=== PATIENT | female | born 1935 | race Caucasian/White ===

== ENCOUNTER → 2017-01-14 | Outpatient (CLI) | payer MEDICARE, BC ==
[~2017-01-14] MED LIST: AMOXICILLIN500 MG PO; ASPIRIN325 MG PO; ATIVAN 0.5MG0.5 MG PO; FEOSOL325 MG PO; FLONASE 50 MCG/16 GM NOSE; LEVOTHROID (S100 MCG PO; LINZESS145 MCG PO; MIRALAX17 GM PO; NATURAL BALANCE15 ML OPHTH; NEURONTIN300 MG PO; NORCO 5-325 TA1 EACH PO; NYSTOP60 GM TOP; PAMELOR25 MG PO; PRESERVISION A1 EAC2 PO; PRILOSEC20 MG PO; PROAIR HFA8.5 GM INH; PROTONIX40 MG PO; PROVENTIL OR V6.7 GM INH; TOPROL XL25 MG PO; TRICOR145 MG PO; TYLENOL ARTHRI650 MG PO; TYLENOL EXTRA500 MG PO; TYLENOL WITH C1 EACH PO; TYLENOL325 MG PO; ULTRAM50 MG PO; VOLTAREN 1% GE100 GM TOP; XARELTO10 MG PO; ZETIA10 MG PO; ZYRTEC10 MG PO; [UNRECOGNIZED DRUG - CODE] TOP
--- NOTE | ~2017-01-14 | PUL ---
PATIENT'S NAME: SELENA GAMEZ [facility] AGE: 81 Y [address] ROOM: [place] [address] [place] [facility] [place]: 01/14/2017 Pulmonary DISCHARGE DATE: FAMILY PHYSICIAN: Alicia Shepherd MD ATTENDING PHYSICIAN: Alicia Shepherd NAME OF PROCEDURE: Six Minute Walk Test DATE OF PROCEDURE: January 14, 2017 TECH: ATripe, TRANSPLANT CASE MANAGER REASON FOR EXAM: Dyspnea on exertion RESULTS: The test was performed on room air. She walked for 850 feet at a pace of 1.6 mile/hour. He had one period of rest. Her oxygen saturation was 95% at the beginning of the test, then remained above 95% during and after the test. The perceived dyspnea was 2/10 on the Ashwini scale. She had appropriate increases in her heart rate and blood pressure. Please note that she complained of joint pain during the test. PHYSICIAN INTERPRETATION: The patient has mild limitation in her exercise capacity without significant desaturations or hypoxia during exercise while on room air. MD MIGDALIA CONTI/avel /[id number] dtt: 01/16/17 1056 , ANGELINE BRYSON dtd: 01/15/17 1534
== END | disposition disaster alternative care site (69) ==
LOC: GBCOE 01-12 12:30
DX: Z12.31 Encounter for screening mammogram for malignant neoplasm of breast (principal); R42 Dizziness and giddiness
CPT/HCPCS: G0202

== ENCOUNTER 2017-04-21 09:00 | Inpatient (IN) | payer MEDICARE, BC ==
[~2017-04-21] VITALS: Ht 157.5 cm; Wt 69.1 kg
--- NOTE | ~2017-04-21 | OR ---
PATIENT'S NAME: SELENA GONZALEZ [facility] AGE: 81 Y [address] ROOM: [place] [address] LOCATION: [facility] ADMIT DATE: 05/05/2017 OR/Procedure Report DISCHARGE DATE: FAMILY PHYSICIAN: Alicia Shepherd MD ATTENDING PHYSICIAN: SINAI WINN SURGEON: Sinai Winn MD CHAIN MAKER LOOM CONTROL: Shubham Shepard PA-C and Og Pierce CST/DOOR TO DOOR FUNDRAISING COLLECTOR. DATE OF PROCEDURE: 05/05/2017 PRE-OP DIAGNOSIS: Degenerative joint disease, right knee. POST-OP DIAGNOSIS: Degenerative joint disease, right knee. OPERATION: Right total knee arthroplasty with computer navigation. ANESTHESIA: Spinal anesthesia plus adductor canal block plus periarticular local anesthesia (ropivacaine with epinephrine and Toradol). ESTIMATED BLOOD LOSS: Less than 10 mL. DRAIN: None. SPECIMEN: None. COMPLICATIONS: None. IMPLANT SYSTEM: Mertens Triathlon: Size 4 right posterior stabilized femoral component. Size 3 Greenview modular tibial base plate. A 9 mm posterior-stabilized size 3 X3 tibial polyethylene insert. A 32-mm oval X3 patellar component (triple pegged). INDICATIONS FOR SURGERY: Selena Gonzalez is an 81-year-old female who presents with advanced right knee degenerative joint disease and associated severely compromised activities of daily living. The patient has decided to proceed with knee replacement after having been thoroughly counseled regarding the associated risks, benefits, and limitations. We have specifically reviewed the risks and implications of infection, deep venous thrombosis, pulmonary embolism, mortality, neurovascular complications, blood transfusion (and associated potential for disease transmission or transfusion reaction), stiffness, instability, mechanical deterioration of the components (due to wear and or loosening), and the potential need for revision. We have also emphasized the importance of active involvement and compliance with post- operative physical therapy as a means of optimizing range of motion and PATIENT'S NAME: SELENA GONZALEZ [facility] AGE: 81 Y [address] ROOM: [place] [address] LOCATION: [facility] ADMIT DATE: 05/05/2017 OR/Procedure Report DISCHARGE DATE: FAMILY PHYSICIAN: Alicia Shepherd MD ATTENDING PHYSICIAN: SINAI WINN functional recovery. Informed consent has been granted. DESCRIPTION OF PROCEDURE: The patient was positioned supine after administration of anesthesia and prophylactic antibiotics. A well-padded pneumatic tourniquet was placed around the right proximal thigh, and the right lower extremity was prepped and draped with vigilant sterile technique. The patient's name as well as the intended operative side and procedure were confirmed with a verbal time-out involving myself, the circulating nurse, the scrub nurse, and the anesthesiologist. Examination under anesthesia demonstrated a large effusion. There was no erythema. There was no abnormal warmth. There were no active skin lesions or masses. Range of motion under anesthesia was from a 5-degree flexion contracture to 130 degrees of flexion. There was no ligamentous insufficiency. The right lower extremity was elevated and exsanguinated with an Esmarch wrap, and the pneumatic tourniquet was inflated to 300mmHg. The knee was approached through a longitudinal midline incision. A medial parapatellar arthrotomy was performed and the patella was everted. Examination of the joint space demonstrated a large amount of benign-appearing translucent synovial fluid. There was a large osteophyte at the lateral aspect of the intercondylar notch. There was a large osteophyte and a 5 mm diameter mobile ossicle at the medial margin of the medial tibial plateau. There was a large osteophyte at the medial femoral condyle. There was full-thickness loss of articular cartilage involving 80% of the medial femoral condyle, 80% of the medial tibial plateau, and a 1.5 cm diameter region at the medial facet of the patella. There was also a 5 mm region of full-thickness articular cartilage loss at the medial aspect of the lateral tibial plateau. There were small osteophytes at the medial and lateral margins of the femoral trochlea as well as the lateral femoral condyle and lateral tibial plateau. There were mild grade 3 degenerative changes at the medial 2/3rd of the lateral tibial plateau. There was partial-thickness fissuring of the articular cartilage at the medial aspect of the lateral tibial plateau. There was moderate inner perimeter tearing of the lateral meniscus. There was degenerative tearing of the truncated peripheral remnant of the medial meniscus. Remnants of the menisci and cruciate ligaments were excised. The [employer] navigation femoral tracker was pinned in place at the distal aspect of the femoral trochlea. Absence of motion between the femur and the tracking device was confirmed manually and visually. Femoral osseous landmarks were obtained in order to calibrate the computer navigation system. Landmarks included the center of rotation of the ipsilateral hip, the center-point of the distal femur, the femoral AP axis, 57 points on the medial femoral condyle PATIENT'S NAME: SELENA GONZALEZ [facility] AGE: 81 Y [address] ROOM: [address] [address] LOCATION: [facility] ADMIT DATE: 05/05/2017 OR/Procedure Report DISCHARGE DATE: FAMILY PHYSICIAN: Alicia Shepherd MD ATTENDING PHYSICIAN: SINAI WINN articular surface, and 57 points on the lateral femoral condyle articular surface. The [employer] Youth computer navigation system was subsequently utilized to position the distal femoral resection block such that the distal femoral resection was performed perfectly perpendicular to the femoral mechanical axis. The distal femoral resection was performed with a Stremor oscillating saw. The [employer] Youth computer navigation tibial tracker was pinned in place at the anterior aspect of the tibial plateau. Absence of motion between the tibia and the tracking device was confirmed manually and visually. Tibial osseous landmarks were obtained in order to calibrate the computer navigation system. Landmarks included the center-point of the tibial plateau, the AP tibial axis, 57 points on the medial tibial plateau articular surface, 57 points on the lateral tibial plateau articular surface, the medial malleolus, and the lateral malleolus. The [employer] Youth computer navigation system was subsequently utilized to position the proximal tibial resection block such that the proximal tibial resection was performed perfectly perpendicular to the tibial mechanical axis. The proximal tibial resection was performed with a [employer] Precision oscillating saw. Perpendicularity of the tibial resection with respect to the tibial shaft axis was reconfirmed by inserting a spacer- block attached to an extramedullary guide elvia. External rotation of the anterior and posterior femoral resections was set parallel to the epicondylar axis and carefully adjusted in order to create a rectangular flexion gap. The box resection was performed with a reciprocating saw. Anterior and posterior chamfer resections were performed with the oscillating saw. Posterior condyle osteophytes were excised with an osteotome. All other osteophytes were excised with a rongeur. Resection of all remnants of the menisci was reconfirmed. Flexion and extension gaps were confirmed to be symmetric and well balanced with a spacer-block technique. The patella resection was performed with an oscillating saw such that the composite thickness of the reconstructed patella was equivalent to the thickness of the omaha patella. Patella tracking was optimal, and there was no need for a lateral retinacular release. All trial components were removed and all prepared osseous surfaces were thoroughly irrigated with pulsatile saline lavage and dried prior to cementing all three components in a single stage using Feng Simplex cement containing pre-mixed tobramycin. All extruded excess cement was removed. The entire joint space was thoroughly inspected and thoroughly irrigated with bacteriostatic pulsatile saline lavage to assure that there was no residual debris of any sort. Final range of motion was full extension (with no passive hyperextension) to PATIENT'S NAME: SELENA GONZALEZ [facility] AGE: 81 Y [address] ROOM: [address] [address] LOCATION: [facility] ADMIT DATE: 05/05/2017 OR/Procedure Report DISCHARGE DATE: FAMILY PHYSICIAN: Alicia Shepherd MD ATTENDING PHYSICIAN: SINAI WINN 130 degrees of flexion. Patella tracking was reconfirmed to be optimal. There was very good anteroposterior stability at 90 degrees of flexion. There was less than 1 mm of medial lift-off to valgus stress in full extension. There was 1 mm of lateral lift-off to varus stress in full extension. The arthrotomy was closed with multiple simple and ldtoyt-xg-xncac interrupted #1 Vicryl. Subcutaneous tissues were thoroughly re-irrigated with bacteriostatic pulsatile saline lavage. Subcutaneous tissues were re- approximated with simple buried interrupted #0 Vicryl sutures. The skin was closed with simple buried interrupted 2-0 Vicryl sutures followed by surgical yvonne. The dressing consisted of Xeroform gauze, 4x4 gauze, ABD pads and two 6-inch Luther Wraps. There were no intra-operative complications. It should be noted that the physician's floral assistant played an active, integral role throughout this entire operation. By providing expert retraction, they greatly facilitated and expedited safe and effective exposure of the distal femur, proximal tibia and patella for preparation and implantation of the components. They were also actively involved in the patient's positioning, prepping and draping, as well as wound closure. MD JOSEPH DILLON/harleenl /[id number] d: 05/05/17 1326 t: 05/15/17 0751, OPERATIVE SUMMARY
--- NOTE | ~2017-04-21 | DS ---
PATIENT'S NAME: SELENA GAMEZ [facility] AGE: 81 Y [address] ROOM: [place] [address] LOCATION: [facility] ADMIT DATE: 05/05/2017 Discharge Summary DISCHARGE DATE: 05/08/2017 FAMILY PHYSICIAN: Alicia Shepherd MD ATTENDING PHYSICIAN: Sinai Winn PRIMARY DIAGNOSIS: Degenerative joint disease of the right knee. SECONDARY DIAGNOSES: 1. Hypertension. 2. Chronic anxiety. 3. Depression. 4. Anemia. 5. History of gastric erosions. 6. Renal insufficiency. PROCEDURE PERFORMED: Right total knee arthroplasty. HISTORY: The patient is an 81-year-old female, who presents with advanced right knee degenerative joint disease and associated severely compromised activities of daily living. The patient has decided to proceed with total knee arthroplasty after having been thoroughly counseled regarding the risks, benefits, limitations and alternatives. Please refer to the outpatient clinic notes and admission history and physical for this patient. HOSPITAL COURSE: The patient underwent a right total knee arthroplasty on 05/05/2017 without complications. Spinal anesthesia plus adductor canal block plus periarticular local anesthesia was utilized. The patient received 24 hours of perioperative prophylactic antibiotics and remained hemodynamically stable, neurovascularly intact throughout the entire hospital course. The postoperative prophylactic deep venous thrombosis prophylaxis consisted of Xarelto, early mobilization and pneumatic compression devices. Daily physical therapy for gait training, transfer training range of motion and quadriceps isometric exercises were received. The patient progressed well in physical therapy. On the date of discharge, 05/08/2017, the incision at the knee was healing well and showed no signs of infection. DISPOSITION: Home. DISCHARGE ACTIVITY: The patient is to bear weight as tolerated with range of motion and quadriceps isometric exercises as instructed. The operative extremity is to be elevated at least 90% of the day. There is to be sterile 4x4 gauze dressings to the incision daily. Dr. Winn is to be notified immediately if there is any increased pain, fevers, chills erythema or drainage. PATIENT'S NAME: SELENA GAMEZ [facility] AGE: 81 Y [address] ROOM: [place] [address] LOCATION: [facility] ADMIT DATE: 05/05/2017 Discharge Summary DISCHARGE DATE: 05/08/2017 FAMILY PHYSICIAN: Alicia Shepherd MD ATTENDING PHYSICIAN: Sinai Winn DISCHARGE MEDICATIONS: 1. Xarelto 10 mg 1 tab p.o. daily for 12 days for postoperative DVT prophylaxis. 2. [place] 5/325 mg 1 to 2 tabs p.o. every 4 hours p.r.n. for pain. 3. The patient is then instructed to continue all her other pre-admission medications as instructed by her internal medicine doctor. FOLLOWUP: Followup appointment is with Dr. Winn's office on 05/12/2017 for her initial postoperative evaluation with x-rays and staple removal at that time. JOSÉ CURRAN PA-C FOR SINAI WINN MD SMW/modl /[id number] d: 05/14/172320 t: 05/15/172057, DISCHARGE SUMMARY
[~2017-04-21 09:00] MED LIST changes: -AMOXICILLIN500 MG PO; -FEOSOL325 MG PO; -MIRALAX17 GM PO; -NORCO 5-325 TA1 EACH PO; -NYSTOP60 GM TOP; -PROTONIX40 MG PO; -TYLENOL325 MG PO; -XARELTO10 MG PO
[2017-04-22] MEDS ORDERED: PROTONIX40 MG PO (10:24)
[2017-04-22] MEDS ORDERED: ZETIA10 MG PO (10:25)
[2017-04-22] MEDS ORDERED: ATIVAN 0.5MG0.5 MG PO (10:25)
[2017-04-22] MEDS ORDERED: FEOSOL325 MG PO (10:30)
[2017-04-22] MEDS ORDERED: LINZESS145 MCG PO (10:35)
[2017-04-22] MEDS ORDERED: AMOXICILLIN500 MG PO (10:36)
[2017-05-05] MEDS ORDERED: ATIVAN 0.5MG0.5 MG PO (14:34)
--- NOTE | 2017-05-05 19:30 | NUR ---
Significant Event:VSS, O2 at 4L/NC, rates pain 0-2/10. [place] at 1730. Dsg to R knee CDI, CSM adequate. Tx with SBA 1, GB/Walker. Up in chair x 2. Voids per BSC. Follow up:Monitor
--- NOTE | 2017-05-06 05:00 | NUR ---
Shift Summary: Patient can ambulate with one assist/walker. Good pain control with Swoope or Tylenol. Had Swoope at 5 and 650mg Tylenol at 6. Patient has anxiety disorder. Has scheduled and PRN Ativan. She had PRN dose with her 6 tylenol. Tolerating regular diet well. Voiding without difficulty.
[2017-05-06 05:29] LABS: HEMATOCRIT 29.6 % (30.0-46.0); HEMOGLOBIN 9.6 g/dL (10.0-15.0)
--- NOTE | 2017-05-06 11:30 | NUR ---
Introduced self/role to patient. She lives alone here in [place] but will have family staying with her for a period. She has a followup appointment with Dr. Palm next week and if she isn't doing well at home her back up plan is to go to [facility]. Wants to stay here until Thursday. So walked in at this point so went over things again. They have all the DME she will need at home. Added my name to her marker board, will continue to follow. Later visited with Valerio De La Cruz about patient staying until Thursday. Would need to have her 3 midnights if she decided she needed to go to [facility] later on.
--- NOTE | 2017-05-06 16:33 | NUR ---
Significant Event: PT ALERT AND ORIENTED. TRANSFERS WITH 1 ASSIST TO THE [id number]. TAKES NORCO FOR PAIN LAST AT 1630. ICE TO KNEE. TAKES ATIVAN ALSO HOME TOMORROW Follow up:
--- NOTE | 2017-05-07 03:19 | NUR ---
Significant Event: Dressing is clean, dry and intact. CSM WNL. Voids without difficulty. 1 assist. On 2 L of oxygen nasal cannula. [place] last at 0042. Follow up:
--- NOTE | 2017-05-07 14:40 | NUR ---
Yasmine spoke to me about concerns regarding patient and if she can go home or not. She will be here tomorrow and work with patient, we will assess the situation tomorrow.
--- NOTE | 2017-05-07 16:51 | NUR ---
Significant Event: pt alert but forgetful. sleepy this am but much better this afternoon. ativan at 1600 held. per family request. norco also held and tylenol given. voids well. no bm today. will given dulcolax supp. 02 at 2 liters when she rests. ice to knee. will go home with family tomorrow. Follow up:
--- NOTE | 2017-05-08 04:55 | NUR ---
Pt up one assist, needs cueing. Pt had BM. Pt had tylenol at 0100 and 2.5 po valium at 0320. CSM's intact, dressing C/D/I. Pt forgetful. Pt on 1L O2.
--- NOTE | 2017-05-08 08:20 | NUR ---
Questions as to whether placement is needed or not. Called [facility] and faxed referral. 0919 Patient indicates she plans to go home with HHC. 1005 Called daughter Janice #[phone], she will be here in about 30 minutes. 1015 Janice from [facility] let me know they could not admit today, but possibly Thursday. Let Dr Rivera, nursing and therapies now this. 1030 Meet with patient and her daughter. Plan is home, someone will be there round the clock over the weekend. Then will see Dr Palm and assess whether SNF is needed. Also will talk about HHC then since will have care takers over the weekend. They understand HHC only comes out a few times a week for a short period. Outpatient therapies would be the better option, they agreed. Daughter would like to work with therapies on transfers today. 1045 Spoke to Ricardo, he will meet with them this afternoon. Followed up with patient and daughter. Will plan to discharge later this afternoon after they meet with Ricardo around [address] Rivera on plan for home, no HHC at this point. She did complete face to face in case that changed.
[2017-05-08] MEDS ORDERED: NYSTOP60 GM TOP (13:49)
[2017-05-08] MEDS ORDERED: MIRALAX17 GM PO (13:50)
[2017-05-08] MEDS ORDERED: XARELTO10 MG PO (13:51)
[2017-05-08] MEDS ORDERED: NORCO 5-325 TA1 EACH PO (13:56)
[2017-05-08] MEDS ORDERED: TYLENOL325 MG PO (13:58)
--- NOTE | 2017-05-08 14:53 | NUR ---
Significant Event: Ambulates with SBA and walker. Dressing C/D/I. Ez wrap ice at all times. CSM WNL. Voids without difficulty. Large BM. Tylenol 650mg last at 0930. Titrated to room air, encourage to use IS. IV d/cd due to leaking. Plans to dismiss to home with family this afternoon. Follow up:
== END 2017-05-08 15:01 | disposition disaster alternative care site (69) | DRG 469 ==
LOC: G3N 05-05 06:13
PROVIDERS: ADMIT Orthopaedic Surgery
PROC: XR2G021 Monitoring of Right Knee Joint using Intraoperative Knee Replacement Sensor, Open Approach, New Technology Group 1 (ICD-10-PCS; principal; 2017-05-05)
PROC: 0SRC0J9 Replacement of Right Knee Joint with Synthetic Substitute, Cemented, Open Approach (ICD-10-PCS; principal; 2017-05-05)
DX: M17.11 Unilateral primary osteoarthritis, right knee (principal); J96.01 Acute respiratory failure with hypoxia; E03.9 Hypothyroidism, unspecified; F32.9 Major depressive disorder, single episode, unspecified; F41.9 Anxiety disorder, unspecified; G62.9 Polyneuropathy, unspecified; I25.10 Atherosclerotic heart disease of native coronary artery without angina pectoris; J30.9 Allergic rhinitis, unspecified; N18.3 Chronic kidney disease, stage 3 (moderate); I12.9 Hypertensive chronic kidney disease with stage 1 through stage 4 chronic kidney disease, or unspecified chronic kidney disease
CPT/HCPCS: C1713; C1776; J0690; J1100; J1885; J2001; J2250; J2405; J2795; J7120

== ENCOUNTER → 2017-04-23 | Outpatient (CLI) | payer MEDICARE, BC ==
[~2017-04-23] MED LIST changes: +AMOXICILLIN500 MG PO; +FEOSOL325 MG PO; +MIRALAX17 GM PO; +NORCO 5-325 TA1 EACH PO; +NYSTOP60 GM TOP; +PROTONIX40 MG PO; +TYLENOL325 MG PO; +XARELTO10 MG PO
== END | disposition disaster alternative care site (69) ==
LOC: GNJRC 10:34
DX: Z01.812 Encounter for preprocedural laboratory examination (principal); M17.11 Unilateral primary osteoarthritis, right knee

== ENCOUNTER → 2017-04-23 | Outpatient (CLI) | payer MEDICARE, BC ==
[2017-04-23 14:44] LABS: INR - (THERAPEUTIC) 0.95 (0.92-1.07)
== END | disposition disaster alternative care site (69) ==
LOC: LGSMG 14:33
PROVIDERS: Internal Medicine
DX: Z01.818 Encounter for other preprocedural examination (principal)

== ENCOUNTER → 2017-05-22 | Outpatient (CLI) | payer MEDICARE, BC | END | disposition disaster alternative care site (69) | LOC: GLAB 16:53 | DX: M25.561 Pain in right knee (principal); M79.89 Other specified soft tissue disorders; Z96.651 Presence of right artificial knee joint ==

== ENCOUNTER → 2017-05-22 | Outpatient (CLI) | payer MEDICARE, BC ==
--- NOTE | ~2017-05-22 | ENPV ---
Vascular Lower Extremities DVT Study Procedure Demographics Patient Name SELENA GAMEZ Date of Study 05/22/2017 Patient Number [id number] Gender Female Date of 1935 Age 81 Visit Number [id number] Height Accession Number [id number] Weight Room Number BSA BMI Referring Néstor Jules MD Interpreting Dave Marion MD Physician Joao Cornejo Physician Physician Ordering Physician Néstor Jules MD Leach Tank Tender Squaring Shear Operator Cecile Pyle T Conclusions Summary Normal venous duplex examination of the legs bilaterally with normal venous Doppler signals noted throughout. No evidence of thrombophlebitis is noted bilaterally in the deep and superficial veins of the legs. Small calf thrombi cannot be excluded. Procedure Type of Study: Veins:Lower Extremities DVT Study, Lower Extremity Right. Indications for Study:Swelling of Limb. Appropriate Use Criteria:9 Patient Status:Routine. Study Location:Vascular Lab. Technical Quality:Adequate visualization. Velocities are measured in cm/s ; Diameters are measured in cm Right Lower Extremities DVT Study Measurements Right 2D and Doppler Measurements + + + + +------+------+ + !Location !Visualized!Compressibility!Thrombosis!Signal!Reflux!Reflux ! ! ! ! ! ! ! !(sec) ! + + + + +------+------+ + !GSV Thigh !Yes !Yes !None !Phasic!No ! ! + + + + +------+------+ + !Common !Yes !Yes !None !Phasic!No ! ! !Femoral ! ! ! ! ! ! ! + + + + +------+------+ + !Prox !Yes !Yes !None !Phasic!No ! ! !Femoral ! ! ! ! ! ! ! + + + + +------+------+ + !Mid Femoral!Yes !Yes !None !Phasic!No ! ! + + + + +------+------+ + !Dist !Yes !Yes !None !Phasic!No ! ! !Femoral ! ! ! ! ! ! ! + + + + +------+------+ + !Popliteal !Yes !Yes !None !Phasic!No ! ! + + + + +------+------+ + !Gastroc !Yes !Yes !None !Phasic!No ! ! + + + + +------+------+ + !PTV !Yes !Yes !None !Phasic!No ! ! + + + + +------+------+ + !Peroneal !Yes !Yes !None !Phasic!No ! ! + + + + +------+------+ + Left Lower Extremities DVT Study Measurements Left 2D and Doppler Measurements + + + + +------+------+ + !Location !Visualized!Compressibility!Thrombosis!Signal!Reflux!Reflux ! ! ! ! ! ! ! !(sec) ! + + + + +------+------+ + !Common !Yes !Yes !None ! ! ! ! !Femoral ! ! ! ! ! ! ! + + + + +------+------+ + Signature dtt: JOLIE SEBASTIAN dtsummer: 05/22/17 1539 Physician Self Edit
== END | disposition disaster alternative care site (69) ==
LOC: GCAR 15:00
DX: Z47.1 Aftercare following joint replacement surgery (principal); G89.18 Other acute postprocedural pain; M79.604 Pain in right leg; M79.89 Other specified soft tissue disorders; Z96.651 Presence of right artificial knee joint